=== PATIENT | female | born 1980 | race African-American/Black ===

== ENCOUNTER → 2018-03-15 | Outpatient (CLI) | payer BC ==
[2016-01-16 20:04] VITALS: BP 134/74
[~2018-03-15] MED LIST: BUTA1CAP29 PO
--- NOTE | 2018-03-15 17:08 | RAD ---
Transabdominal and transvaginal sonography of the pelvis Clinical indications: Excessive menstruation. Transabdominal sonography: The uterus is anteverted in position. The longitudinal and AP and transverse dimensions of the uterus are 14.1 cm and 10.0 cm and 12.3 cm respectively. There is a large heterogeneous solid mass of the upper right aspect of the uterus measuring 8.5 cm in greatest dimension. The endometrial canal is visualized and measures 11 mm in thickness which is normal. There is a small hypoechoic nodule within the anterior midportion of the upper aspect of the uterus measuring 1.7 cm in size. The left ovary measures 2.9 cm and 2.4 cm and 2.4 cm in size and is normal. Color Doppler flow is seen within the left ovary. The right ovary is not visualized. Transvaginal sonography will be performed. No adnexal mass or free fluid is seen. Transvaginal sonography: Uterus is poorly visualized due to the large mass. The endometrial canal measures 17 mm in thickness by transvaginal exam. Nabothian cysts of the cervix are seen. Neither ovary is visualized by transvaginal exam. No adnexal mass or free fluid is evident. IMPRESSION: 8.5 cm mass of the upper aspect of the right side of the uterus most likely representing a uterine fibroid. Small uterine fibroid is seen more anteriorly measuring 1.7 cm.. The endometrial canal measures 17 mm in thickness by transvaginal exam which is mildly thickened. Normal measurement of the endometrial canal in a premenopausal patient is 16 mm. Electronically signed by: Louis Echevarria MD (03/15/2018 5:05 PM) [id number]
== END | disposition home or self-care (01) ==
LOC: US 15:42
PROVIDERS: ATTEND Obstetrics & Gynecology
DX: N92.0 Excessive and frequent menstruation with regular cycle (principal); N88.8 Other specified noninflammatory disorders of cervix uteri; D25.2 Subserosal leiomyoma of uterus
CPT/HCPCS: 76830; 76856

== ENCOUNTER 2018-06-30 05:56 | Observation (INO) | payer BC ==
[~2018-06-30] VITALS: Ht 154.9 cm; Wt 77.1 kg
[2018-06-30] VITALS (8 sets, daily range): BP systolic 106–135; BP diastolic 68–81
[~2018-06-30 05:56] MED LIST changes: +ASPI1TAB31 PO; +L.AC1CAP6 PO; +MELA3TAB2 PO
[2018-06-30] MEDS ORDERED: CLINDAMYCIN 900MG PREMIX 50 ML IV PRN (06:00)
[2018-06-30] MEDS ORDERED: SURGICEL HEMOSTAT 4X8 EACH. ONE (06:19)
[2018-06-30] MEDS ORDERED: LIDOCAINE 1%/EPI 1:100,000 20 ML VIAL. ONE (06:19)
[2018-06-30] MEDS ORDERED: BUPIVACAINE-EPI 0.25%-1:200000 MPF 30 ML VIAL. ONE (06:19)
[2018-06-30] MEDS ORDERED: METHYLENE BLUE 1% 10 ML VIAL. ONE (06:19)
[2018-06-30] MEDS ORDERED: ESTROGENS, CONJ VAGINAL CREAM 30GM TUBE. ONE (06:19)
[2018-06-30 06:37] LABS: U PREG PATIENT NEGATIVE (NEG)
[2018-06-30] MEDS ORDERED: ONDANSETRON PF 4 MG/2 ML VIAL. IV PRN ×2 (07:00→10:45)
[2018-06-30] MEDS ORDERED: MORPHINE SULFATE 2 MG/ML VIAL. IV PRN (07:00)
[2018-06-30] MEDS ORDERED: fentaNYL PF VIAL 100 MCG/2 ML VIAL IV PRN (07:00)
[2018-06-30] MEDS ORDERED: IV RINGERS,LACTATED 1000ML 1,000 ML IV SCH (07:00)
[2018-06-30] MEDS ORDERED: PROCHLORPERAZINE 10 MG/2 ML VIAL. IV PRN ×2 (07:00→10:45)
[2018-06-30 07:10] LABS: BASO # 0.1 x10^3/uL (0.0-0.2); BASO % 1 % (0-3); EOS # 0.2 x10^3/uL (0.0-0.7); EOS % 3 % (0-3); HEMATOCRIT 30.3 % (36.0-47.0); HEMOGLOBIN 8.9 g/dL (12.0-15.5); LYMPH # 1.5 x10^3/uL (1.0-4.8); LYMPH % 25 % (24-48); MEAN CORPUSCULAR HEMOGLOBIN 18 pg (25-35); MEAN CORPUSCULAR HGB CONC 29 g/dL (31-37); MEAN CORPUSCULAR VOLUME 61 fL (79-100); MONO # 0.4 x10^3/uL (0.0-1.1); MONO % 7 % (0-9); NEUT % 65 % (31-73); PLATELET COUNT 294 x10^3/uL (140-400); RED BLOOD COUNT 4.97 x10^6/uL (3.50-5.40); RED CELL DISTRIBUTION WIDTH 18.7 % (11.5-14.5); WHITE BLOOD COUNT 6.1 x10^3/uL (4.0-11.0)
[2018-06-30] MEDS ORDERED: MIDAZOLAM HCL/PF 2 MG/2 ML VIAL. ONE (07:43)
[2018-06-30] MEDS ORDERED: ROCURONIUM 50 MG/5 ML VIAL. ONE ×2 (07:43→08:51)
[2018-06-30] MEDS ORDERED: fentaNYL PF VIAL 250 MCG/5 ML VIAL ONE (07:43)
[2018-06-30] MEDS ORDERED: AZTREONAM IV Push 1 GM VIAL. IVP ONE (07:45)
[2018-06-30 08:15] LABS: ANISOCYTOSIS MOD; HYPOCHROMIA SLIGHT; MICROCYTOSIS PRESENT; PLT ESTIMATE ADEQUATE (ADEQUATE)
[2018-06-30 08:16] LABS: BIZZARE CELLS OCC; OVALOCYTES OCC; POIKILOCYTOSIS SLIGHT
[2018-06-30] MEDS ORDERED: LIDOCAINE 2% PF 5 ML VIAL. ONE (08:52)
[2018-06-30] MEDS ORDERED: SEVOFLURANE 61 TO 120 MINUTES. IH ONE (08:52)
[2018-06-30] MEDS ORDERED: PROPOFOL 20 ML IV ONE (08:52)
[2018-06-30] MEDS ORDERED: DEXAMETHASONE SOD PHOS 20 MG/5 ML VIAL. ONE (08:52)
[2018-06-30] MEDS ORDERED: ONDANSETRON PF 4 MG/2 ML VIAL. ONE (08:52)
--- NOTE | 2018-06-30 10:37 | PDOC ---
BRIEF OPERATIVE NOTE Date: Jun 30, 2018 Pre-Op Diagnosis 1. Fibroids 2. Menorrhagia 3. Dysmenorrhea Post-Op Diagnosis SAme + ROV Cyst Procedure Performed LAVH and ROV Cystectomy Surgeon Dr. Patricio Varela Anesthesia Type: General Blood Loss 100 ml Specimens Obtained uterus, cervix, marlena. fallopian tubes and ROV cyst Findings enlarged, fibroid uterus with adhesions to pelvic sidewall, ROV cyst 5 cm size; nml fallopian tubes marlena., nml RACHELL Complications none Operative Note see dictation BRIDGETT GREER Jr, MD Jun 30, 2018 10:37
[2018-06-30] MEDS ORDERED: ZOLPIDEM 5 MG TABLET. PO PRN (10:45)
[2018-06-30] MEDS ORDERED: DEXTROSE 50% 25 GM / 50ML DISP.SYRIN. IV PRN (10:45)
[2018-06-30] MEDS ORDERED: diphenhydrAMINE 50 MG/ML VIAL IV PRN (10:45)
[2018-06-30] MEDS ORDERED: 0.9 % SODIUM CHLORIDE 10 ML DISP.SYRIN. IV PRN (10:45)
[2018-06-30] MEDS ORDERED: SIMETHICONE 80 MG TAB.CHEW PO PRN (10:45)
[2018-06-30] MEDS ORDERED: CALCIUM CARBONATE 500 MG TAB.CHEW PO PRN (10:45)
[2018-06-30] MEDS ORDERED: diphenhydrAMINE HCL 25 MG CAPSULE PO PRN (10:45)
[2018-06-30] MEDS: fentaNYL PF VIAL 100 MCG/2 ML VIAL IV PRN ×2 (10:53→11:07)
[2018-06-30] MEDS: HYDROmorphone 2 MG/ML VIAL IV PRN ×2 (11:24→11:37)
--- NOTE | 2018-06-30 12:18 | OP ---
DATE OF SURGERY: PREOPERATIVE DIAGNOSES: 1. Fibroids. 2. Menorrhagia. 3. Dysmenorrhea. POSTOPERATIVE DIAGNOSES: 1. Fibroids. 2. Menorrhagia. 3. Dysmenorrhea. 4. Right ovarian cyst. PROCEDURE: LAVH and right ovarian cystectomy. SURGEON: Bridgett Curry MD MANAGER LAND: Nichole. ANESTHESIA: GETA. ESTIMATED BLOOD LOSS: 100 mL. COMPLICATIONS: None. FINDINGS: Enlarged fibroid uterus with adhesions to the pelvic sidewall. Right ovarian cyst 5 cm size, normal fallopian tubes bilaterally and normal left ovary. SUMMARY: The patient with long history of dysmenorrhea and menorrhagia, also had multiple enlarged fibroids and pelvic sonogram. She was counseled on the risks, benefits and expectations of LAVH and voiced clear understanding to proceed. DESCRIPTION OF PROCEDURE: The patient was taken to surgery suite and placed in dorsal lithotomy position. She was prepped with ChloraPrep for abdominal prep and Betadine for vaginal prep. After adequate anesthesia, bivalve speculum was placed vaginally. The anterior lip of the cervix was grasped with single tooth tenaculum. The [employer] uterine manipulator was then placed. The bivalve speculum was removed. Attention was now placed on the abdomen. Small transverse skin incision was made just below the umbilicus with the scalpel. The Veress needle was then placed through the infraumbilical incision site. The abdomen was allowed to insufflate up to 1-1/2 liters CO2 gas. The Veress needle was then removed, 5 mm trocar was placed. The scope was positioned. The uterus was visualized and enlarged with multiple fibroids. There was a right ovarian cyst of about 5 cm size. The fallopian tubes appeared normal bilaterally. There were adhesions to the left pelvic sidewall. The left ovary appeared normal. Two additional incisions were made in the left lower quadrant with a scalpel in which 5 mm trocars were placed. With the aid of graspers and the EnSeal device, the right round ligament was coagulated and dissected. The right utero-ovarian pedicle was coagulated and dissected. The right ovarian cyst was then isolated and the cyst was suctioned with the suction senior peoplesoft developer, which was clear fluid. The cyst wall was removed with the aid of EnSeal device. The remaining cyst wall and right ovary were hemostatic. The left round ligament was then coagulated and dissected. The left utero-ovarian pedicle was coagulated and dissected. The broad ligament was coagulated and dissected bilaterally. Due to the large fibroids, we were unable to create a bladder flap. The pedicles at this time were all hemostatic and verified with suction irrigation. We then proceeded vaginally. Weighted speculum and curved Coward were placed. Single tooth tenaculum and Valtchev uterine manipulator were then removed. Solitario clamps were placed on the anterior and posterior lip of the cervix. The cervix was then injected with 1% lidocaine with epinephrine in a circumferential manner. Bovie cautery was utilized to circumscribe the cervix. The vaginal wall mucosa was then dissected away from the lower uterine segment using blunt dissection with a moist Ray-Milan. The parametrial tissue was clamped bilaterally, cut and suture ligated with 2-0 Vicryl suture. The cardinal ligament was then clamped bilaterally, cut, and suture ligated. Then, anterior and posterior cul-de-sac and sharp dissection with curved Viera scissors. A long weighted speculum was then placed. The uterosacral ligaments were clamped bilaterally, cut, and suture ligated. Three additional pedicles were taken bilaterally, which were clamped, cut, and suture ligated. We then entered the anterior cul-de-sac with blunt dissection. The uterus was then bivalved and part of the cervix and lower uterine segment were removed. The coring method to debulk the uterus of the multiple fibroids was then performed, which took considerable amount of time due to the adhesions and the large fibroids. There were multiple fibroids that were 8-10 cm size that were debulked and removed and then finally the uterus was removed. A modified Orellana's culdoplasty incorporating the uterosacral ligaments bilaterally was performed. The remainder of the vaginal cuff was reapproximated using 2-0 Vicryl suture in a [id number] manner. Moist vaginal packing was placed. Attention was once again placed on the abdomen. Suction irrigation was utilized to visualize the posterior cuff, which was hemostatic. Andree was placed along the posterior cuff. The trocars were then removed under direct visualization. The abdomen was allowed to deflate as much as possible along with mechanical manipulation. The three skin incisions were reapproximated using 4-0 Vicryl suture in subcuticular manner. A 0.25% Marcaine with epinephrine was injected at each incision site. The patient tolerated the procedure well and was taken to recovery room in stable condition. Sponge and needle count correct x 3. BRIDGETT CURRY MD DR: ROHAN/fatmata JOB#: [id number] / [id number]
[2018-06-30] MEDS: KETOROLAC 30 MG/ML VIAL. IV PRN ×2 (12:36→21:30)
[2018-06-30] MEDS: GABAPENTIN 300 MG CAPSULE. PO SCH ×2 (14:00→21:31)
[2018-06-30] MEDS ORDERED: fentaNYL PF VIAL 100 MCG/2 ML VIAL IV ONE (17:30)
[2018-06-30] MEDS: oxyCODONE/APAP 5/325 1 TAB TABLET PO PRN (21:31)
[2018-07-01 03:04] VITALS: BP 119/76
[2018-07-01] MEDS: oxyCODONE/APAP 5/325 1 TAB TABLET PO PRN ×2 (05:31→09:24)
[2018-07-01] MEDS: KETOROLAC 30 MG/ML VIAL. IV PRN (05:31)
[2018-07-01 06:08] LABS: BASO % 0 % (0-3); EOS % 0 % (0-3); HEMATOCRIT 24.6 % (36.0-47.0); HEMOGLOBIN 7.2 g/dL (12.0-15.5); LYMPH # 1.2 x10^3/uL (1.0-4.8); LYMPH % 12 % (24-48); MEAN CORPUSCULAR HEMOGLOBIN 18 pg (25-35); MEAN CORPUSCULAR HGB CONC 29 g/dL (31-37); MEAN CORPUSCULAR VOLUME 61 fL (79-100); MONO # 0.7 x10^3/uL (0.0-1.1); MONO % 7 % (0-9); NEUT # 8.4 x10^3uL (1.8-7.7); NEUT % 81 % (31-73); PLATELET COUNT 268 x10^3/uL (140-400); RED BLOOD COUNT 4.05 x10^6/uL (3.50-5.40); RED CELL DISTRIBUTION WIDTH 18.4 % (11.5-14.5); WHITE BLOOD COUNT 10.4 x10^3/uL (4.0-11.0)
[2018-07-01 06:37] VITALS: BP 118/81
--- NOTE | 2018-07-01 08:40 | PDOC ---
SURGICAL PROGRESS NOTE Subjective Pt. feeling well. Pain controlled. Vital Signs Vital Signs Date Time Temp Pulse Resp B/P (MAP) Pulse Ox O2 Delivery O2 Flow Rate FiO2 07/01/18 06:37 98.6 84 18 118/81 (93) 98 Room Air 98.6 06/30/18 12:03 2.0 I&O Intake and Output 07/01/18 06:59 Intake Total 4943 ml Output Total 3900 ml Balance 1043 ml Intake Oral 640 ml IV Total 2800 ml Other 1503 ml Output Urine Total 3800 ml Estimated Blood Loss 100 ml PATIENT HAS A MARTINEZ: No General: Alert, Oriented X3, Cooperative HEENT: Atraumatic Lungs: Clear to auscultation Heart: Regular rate Abdomen: Normal bowel sounds, Soft, No masses Psych/Mental Status: Mental status NL Labs Laboratory Tests Test 06/30/18 06:30 06/30/18 06:35 07/01/18 05:20 Urine Test Negative (NEG) White Blood Count 6.1 x10^3/uL (4.0-11.0) 10.4 x10^3/uL (4.0-11.0) Red Blood Count 4.97 x10^6/uL (3.50-5.40) 4.05 x10^6/uL (3.50-5.40) Hemoglobin 8.9 g/dL (12.0-15.5) 7.2 g/dL (12.0-15.5) Hematocrit 30.3 % (36.0-47.0) 24.6 % (36.0-47.0) Mean Corpuscular Volume 61 fL (79-100) 61 fL (79-100) Mean Corpuscular Hemoglobin 18 pg (25-35) 18 pg (25-35) Mean Corpuscular Hemoglobin Concent 29 g/dL (31-37) 29 g/dL (31-37) Red Cell Distribution Width 18.7 % (11.5-14.5) 18.4 % (11.5-14.5) Platelet Count 294 x10^3/uL (140-400) 268 x10^3/uL (140-400) Neutrophils (%) (Auto) 65 % (31-73) 81 % (31-73) Lymphocytes (%) (Auto) 25 % (24-48) 12 % (24-48) Monocytes (%) (Auto) 7 % (0-9) 7 % (0-9) Eosinophils (%) (Auto) 3 % (0-3) 0 % (0-3) Basophils (%) (Auto) 1 % (0-3) 0 % (0-3) Neutrophils # (Auto) 4.0 x10^3uL (1.8-7.7) 8.4 x10^3uL (1.8-7.7) Lymphocytes # (Auto) 1.5 x10^3/uL (1.0-4.8) 1.2 x10^3/uL (1.0-4.8) Monocytes # (Auto) 0.4 x10^3/uL (0.0-1.1) 0.7 x10^3/uL (0.0-1.1) Eosinophils # (Auto) 0.2 x10^3/uL (0.0-0.7) 0.0 x10^3/uL (0.0-0.7) Basophils # (Auto) 0.1 x10^3/uL (0.0-0.2) 0.0 x10^3/uL (0.0-0.2) Platelet Estimate Adequate (ADEQUATE) Large Platelets Occ Hypochromasia Slight Poikilocytosis Slight Anisocytosis Mod Microcytosis Present Ovalocytes Occ RBC Morphology Bizarre Forms Occ Laboratory Tests Test 07/01/18 05:20 White Blood Count 10.4 x10^3/uL (4.0-11.0) Red Blood Count 4.05 x10^6/uL (3.50-5.40) Hemoglobin 7.2 g/dL (12.0-15.5) Hematocrit 24.6 % (36.0-47.0) Mean Corpuscular Volume 61 fL (79-100) Mean Corpuscular Hemoglobin 18 pg (25-35) Mean Corpuscular Hemoglobin Concent 29 g/dL (31-37) Red Cell Distribution Width 18.4 % (11.5-14.5) Platelet Count 268 x10^3/uL (140-400) Neutrophils (%) (Auto) 81 % (31-73) Lymphocytes (%) (Auto) 12 % (24-48) Monocytes (%) (Auto) 7 % (0-9) Eosinophils (%) (Auto) 0 % (0-3) Basophils (%) (Auto) 0 % (0-3) Neutrophils # (Auto) 8.4 x10^3uL (1.8-7.7) Lymphocytes # (Auto) 1.2 x10^3/uL (1.0-4.8) Monocytes # (Auto) 0.7 x10^3/uL (0.0-1.1) Eosinophils # (Auto) 0.0 x10^3/uL (0.0-0.7) Basophils # (Auto) 0.0 x10^3/uL (0.0-0.2) Assessment/Plan A: POD#1 s/p LAVH and ROV Cystectomy P: D/c home. BRIDGETT GREER Jr, MD Jul 01, 2018 08:40
--- NOTE | 2018-07-01 08:45 | DISCH ---
DISCHARGE INSTRUCTIONS Condition on Discharge Condition on Discharge: Stable Activity After Discharge Activity Instructions for Disc: Activity as tolerated Lifting Instructions after Dis: No heavy lifting Driving Instructions after Dis: No driving for 2 weeks Diet after Discharge Diet after Discharge: Regular Contacting the DRAman after DC Call your doctor for: Concerns you may have Follow-Up Follow up with: Dr. Curry in 2 weeks. BRIDGETT CURRY Jr, MD Jul 01, 2018 08:45
[2018-07-01] MEDS ORDERED: OXYC1TAB15 PO (08:50)
[2018-07-01] MEDS ORDERED: IBUP-1060 PO (08:50)
[2018-07-01] MEDS ORDERED: DOCU-109 PO (08:50)
[2018-07-01 09:00] VITALS: BP 121/66
[2018-07-01] MEDS: GABAPENTIN 300 MG CAPSULE. PO SCH (09:23)
[2018-07-01 11:10] VITALS: BP 111/73
--- NOTE | 2018-07-01 11:15 | NUR ---
Discharge Note: Pt. verbalizes understanding to discharge care instructions, copy and prescriptions provided. Pt. escorted via WC by RN to mother awaiting in vehicle. Pt. discharged home with belongings. Elizabeth Roman RN
--- NOTE | 2018-07-01 15:06 | PATHOLOGY ---
[facility] Accession Number: [id number] . 01 Material submitted: . PART A: RIGHT OVARIAN CYST WALL PART B: CERVIX, UTERUS, AND BILATERAL TUBES . 01 Clinical history: . Fibroids, menorrhagia, dysmenorrhea. . 02 Diagnosis: A. Segments of ovarian tissue, right ovarian cyst wall: - Follicle cyst and cystic follicles. . B. Segments of uterine corpus and uterine cervix and detached bilateral fallopian tubes, laparoscopic-assisted vaginal hysterectomy with bilateral salpingectomy: - Leiomyomas, uterine corpus, multiple (uterine weight 576 grams). - Nabothian cysts, cervix, few. - Proliferative endometrium. - Adenomyosis, uterine corpus. - Congestion of bilateral fallopian tubes. . (JPM:srinivasan; 07/01/2018) MBR/07/01/2018 . 02 Comment: There is no atypia or evidence of malignancy. (JPM:srinivasan; 07/01/2018) . 02 Electronically signed: . Jesus Zuniga MD, Pathologist NPI- [id number] . 01 Gross description: . A. Received in formalin labeled "Fantasma Nava, right ovarian cyst wall" are two portions of olvera-pink membranous cyst wall measuring 4.0 x 3.5 x 0.2 cm and 2.0 x 1.3 x 0.2 cm. The surfaces are smooth and no solid areas or papillary excrescences are identified. [employer] sections are submitted in cassettes A1-A2. . B. Received in formalin labeled "Fantasma Nava, cervix, uterus, bilateral tubes" is a hysterectomy specimen consisting of a morcellated uterus with detached fallopian tubes. The uterus weighs 576 g and measures 16.8 x 16.0 x 7.5 cm in aggregate. The serosa is pink olvera and smooth with focal ragged areas. The cervical os is slitlike and measures 1.2 cm, and the ectocervix is pink-olvera and glistening. The endocervical canal measures 5.0 x 1.7 cm, and the endometrial cavity dimensions cannot be determined due to the fragmented nature of the specimen. Scant endometrial tissue is identified, measuring 0.1 cm in thickness. The myometrial thickness cannot be determined due to the fragmented nature of the specimen. Approximately 50% of the portions display olvera-white firm fibrotic leiomyomata, with these fragments ranging from 4.0-10.2 cm in greatest dimension. No hemorrhage or necrosis is identified. The first fimbriated fallopian tube measures 3.2 cm in length and 0.8 cm in diameter. The second fimbriated fallopian tube measures 6.2 cm in length and 0.7 cm in diameter. The serosal surfaces are pink olvera and smooth and the fallopian tubes are serially sectioned to reveal pinpoint lumens. Construction St[employer]emason sections are submitted as follows: B1-B2 cervix B3-B4 endometrium B5-B6 cash application representative leiomyomata B7 entire first fallopian tube B8 cash application representative second fallopian tube ([facility]; 06/30/2018) SYC/SYC . 02 Pathologist provided ICD-10: D25.9, N88.8, N80.0, N83.01 . 02 CPT . 736259 Specimen Comment: A courtesy copy of this report has been sent to Specimen Comment: [phone]. Specimen Comment: Report sent to [facility]formed at: [facility] [address], [place] [id number] MD Johnny Montes MD Phone: [phone] Performed at: [facility] [address] [place], [place] [id number] MD Jesus Zuniga MD Phone: [phone]
== END 2018-07-01 11:15 | disposition home or self-care (01) ==
LOC: SURG 05:56 → 3 NORTH 10:37
PROVIDERS: ADMIT Obstetrics & Gynecology; ATTEND Obstetrics & Gynecology
DX: D25.9 Leiomyoma of uterus, unspecified (principal); N92.0 Excessive and frequent menstruation with regular cycle; N94.6 Dysmenorrhea, unspecified; N83.201 Unspecified ovarian cyst, right side
CPT/HCPCS: 36415; 58554; 81025; 85025; 86850; 86900; 86901; 88307; 96374; 96375; 96376; A7015; G0378; G0379; J1100; J1170; J1885; J2001; J2250; J2405; J2704; J3010; J3490; J7030; J7120; Q9968

== ENCOUNTER 2018-08-06 16:24 | Emergency (ER) | payer BC ==
[~2018-08-06] VITALS: Ht 154.9 cm; Wt 77.1 kg
[~2018-08-06 16:24] MED LIST changes: +DOCU-109 PO; +IBUP-1060 PO; +OXYC1TAB15 PO
[2018-08-06 16:27] VITALS: BP 137/80
[2018-08-06] MEDS ORDERED: MUPI22OI2 TP (16:46)
--- NOTE | 2018-08-06 16:46 | PHYS DOC ---
Past Medical History Past Medical History: Migraines Past Surgical History: Tubal ligation Alcohol Use: Occasionally Drug Use: None Adult General Chief Complaint Chief Complaint: POST-OP PROBLEM HPI HPI Patient is a 38 year old female who presents today complaining of trace redness on the incision site from her hysterectomy she had roughly a week ago. Patient denies any drainage from the area. Denies any fever, denies any abdominal pain nausea or vomiting. She had laparoscopic hysterectomy. Review of Systems Review of Systems Constitutional: Denies fever or chills [] Eyes: Denies change in visual acuity, redness, or eye pain [] HENT: Denies nasal congestion or sore throat [] Respiratory: Denies cough or shortness of breath [] Cardiovascular: No additional information not addressed in HPI [] GI: Reports trace redness an incision site on the abdomen. Denies abdominal pain, nausea, vomiting, bloody stools or diarrhea [] : Denies dysuria or hematuria [] Musculoskeletal: Denies back pain or joint pain [] Integument: See abdomen Neurologic: Denies headache, focal weakness or sensory changes [] All other systems were reviewed and found to be within normal limits, except as documented in this note. Allergies Allergies Allergies Coded Allergies Type Severity Reaction Last Updated Verified Penicillins Allergy Intermediate Unknown 06/30/18 Yes Physical Exam Physical Exam Constitutional: Well developed, well nourished, no acute distress, non-toxic appearance. [] HENT: Normocephalic, atraumatic, bilateral external ears normal, oropharynx moist, no oral exudates, nose normal. [] Eyes: PERRLA, EOMI, conjunctiva normal, no discharge. [] Neck: Normal range of motion, no tenderness, supple, no stridor. [] Cardiovascular:Heart rate regular rhythm, no murmur [] Lungs & Thorax: Bilateral breath sounds clear to auscultation [] Abdomen: Bowel sounds normal, soft, no tenderness, no masses, no pulsatile masses. Left mid abdomen with an incision site approximately 1 cm long with trace erythema and trace yellowness, no drainage. The incision site is not dehisced. There is no warmth over the area. The rest of the laparoscopic i ncision site on the abdomen appear normal. This appears to be a superficial infection. Skin: See abdomen Back: No tenderness, no CVA tenderness. [] Extremities: No tenderness, no cyanosis, no clubbing, ROM intact, no edema. [] Neurologic: Alert and oriented X 3, normal motor function, normal sensory function, no focal deficits noted. [] Psychologic: Affect normal, judgement normal, mood normal. [] EKG EKG [] Radiology/Procedures Radiology/Procedures [] Course & Med Decision Making Course & Med Decision Making Pertinent Labs and Imaging studies reviewed. (See chart for details) This is a 38-year-old female patient presenting to the ED today with a superficial infection on the laceration site from a laparoscopic hysterectomy done a week ago. She has trace erythema to this incision site on the left mid abdomen. Her tetanus is up-to-date. Discharged with Bactroban ointment. Instructed to keep the areas clean and dry and follow-up with her NAIL PULLER, she states she has an appointment August 10, 2018. Dragon Disclaimer Dragon Disclaimer This electronic medical record was generated, in whole or in part, using a voice recognition dictation system. Departure Departure Impression: Primary Impression: Superficial incisional surgical site infection Disposition: 01 HOME, SELF-CARE Condition: STABLE Referrals: NO PCP (PCP) BRIDGETT GREER Jr, MD Follow up August 10, 2018 as scheduled Patient Instructions: Skin Infections Additional Instructions: You were evaluated in the emergency room for surgical incision infection. Keep the area clean and dry. Apply the prescribed medication twice a day to the area. Follow-up with the NAIL PULLER on 10 Aug 2018 as scheduled. Come back to the ED at any point symptoms worsen. Scripts Mupirocin (MUPIROCIN OINTMENT) 22 Gm Oint...g. 1 RAFAEL TP TID for WOUND CARE, #1 TUBE Prov: HANSEL PICKENS APRN 08/06/18 HANSEL PICKENS APRN Aug 06, 2018 16:46
== END 2018-08-06 16:49 | disposition home or self-care (01) ==
LOC: ER 16:24
DX: T81.41XA Infection following a procedure, superficial incisional surgical site, initial encounter (principal); G43.909 Migraine, unspecified, not intractable, without status migrainosus; Z98.51 Tubal ligation status; Z88.0 Allergy status to penicillin
CPT/HCPCS: 99283

== ENCOUNTER → 2019-05-16 | Outpatient (CLI) | payer BC, OTHER ==
[~2019-05-16] MED LIST changes: -MELA3TAB2 PO; +MELA3TAB56 PO; +MUPI22OI2 TP
--- NOTE | 2019-05-16 17:39 | KCIC ---
PELVIS W/TV History: Right pelvic pain. Comparison: March 15, 2018. Technique: Grayscale and color Doppler imaging of the pelvis was performed using transabdominal and transvaginal technique. Findings: Prior hysterectomy. Right ovary measures 3.0 x 2.7 x 3.9 cm. Complicated follicle within the right ovary measures 1.6 x 1.1 x 1.8 cm. Small amount of fluid within the right adnexa with debris. Left ovary not identified due to positioning and overlying bowel gas. IMPRESSION: 1. Complicated follicle within the right ovary, may represent hemorrhagic follicle. 2. Small amount of nonspecific fluid within the right adnexa with debris. Recommend follow-up. 3. Prior hysterectomy. 4. Left ovary not identified. Electronically signed by: Sim Soto DO (05/16/2019 5:36 PM) [facility]
== END | disposition home or self-care (01) ==
LOC: KCIC US 14:37
PROVIDERS: ATTEND Obstetrics & Gynecology
DX: N83.8 Other noninflammatory disorders of ovary, fallopian tube and broad ligament (principal); Z20.2 Contact with and (suspected) exposure to infections with a predominantly sexual mode of transmission; Z90.710 Acquired absence of both cervix and uterus
CPT/HCPCS: 76830; 76856

== ENCOUNTER 2019-10-18 16:57 | Emergency (ER) | payer OTHER ==
[~2019-10-18] VITALS: Ht 157.5 cm; Wt 77.2 kg
[~2019-10-18 16:57] MED LIST changes: +MELA3TAB4 PO; -MELA3TAB56 PO
--- NOTE | 2019-10-18 20:10 | PHYS DOC ---
Past Medical History Past Medical History: No Pertinent History, Migraines Past Surgical History: Hysterectomy, Tubal ligation Smoking Status: Never Smoker Alcohol Use: Occasionally Drug Use: None General Adult EDM: Chief Complaint: LACERATION/AVULSION HPI: HPI: Patient is a 39 year old female who presents with injury to left foot. Patient reports that she dropped a metal bar onto the top of her foot at work this evening and has a laceration on the top of her left foot. Patient is unsure when her last tetanus shot was. She is rating her pain 6 out of 10, there is no radiation of pain, no aggravating factors, patient took no treatment for pain prior to arrival. Patient is able to bear weight and ambulate. Review of Systems: Review of Systems: Constitutional: Denies fever or chills. [] : Denies dysuria. [] Musculoskeletal: See HPI Integument: See HPI Psychiatric: Denies depression or anxiety. [] Heart Score: Risk Factors: Risk Factors: DM, Current or recent (<one month) smoker, HTN, HLP, family history of CAD, obesity. Risk Scores: Score 0 - 3: 2.5% MACE over next 6 weeks - Discharge Home Score 4 - 6: 20.3% MACE over next 6 weeks - Admit for Clinical Observation Score 7 - 10: 72.7% MACE over next 6 weeks - Early Invasive Strategies Allergies: Allergies: Allergies Coded Allergies Type Severity Reaction Last Updated Verified Penicillins Allergy Intermediate Unknown 06/30/18 Yes Physical Exam: PE: Constitutional: Well developed, well nourished, no acute distress, non-toxic appearance. [] HENT: Normocephalic, atraumatic, bilateral external ears normal, nose normal. [] Eyes: PERRLA, EOMI, conjunctiva normal, no discharge. [] Neck: Normal range of motion, no stridor. [] Cardiovascular:Heart rate regular rhythm Lungs & Thorax: Respirations even and unlabored, no retractions, no respiratory distress Skin: Warm, dry, no erythema, no rash; 1.5 cm horizontal laceration noted just proximal to the left great toe, no active bleeding no visible foreign body. [] Extremities: Left foot: Tenderness to palpation proximal to the left great toe, full extension and flexion of the affected toe, no obvious deformity, no crepitus no cyanosis, no edema. [] Neurologic: Alert and oriented X 3, no focal deficits noted. [] Psychologic: Affect normal, judgement normal, mood normal. [] EKG: EKG: [] Radiology/Procedures: Radiology/Procedures: PROCEDURE: FOOT LEFT 3V Study: CR FOOT LEFT 3V Indication: Trauma to the foot. Laceration. Comparison: None. Findings: No acute fracture is identified or traumatic malalignment. Joint spaces are maintained. Normal osseous mineralization. No retained radiopaque foreign body. Impression: No acute osseous abnormality. Laceration Repair by me: Anesthesia: 1% lidocaine locally Location: left foot Tendon/Joint/Nerves: No injury Foreign body: None detected after cleansing and exploration Technique: 3 Simple Interrupted Sutures with 4-0 Prolene Complexity: No subcutaneous sutures/mucosal repair/edge excision Post Closure Length: 1.5 cm Patient's bleeding was easily controlled in the department and there is no indication of anemia. No evidence of compartment syndrome, neurologic injury, vascular injury, open joint, tendon laceration, or foreign body. Patient is appropriate for outpatient follow up. Course & Med Decision Making: Course & Med Decision Making Pertinent Labs and Imaging studies reviewed. (See chart for details) [] Dragon Disclaimer: Dragon Disclaimer: This electronic medical record was generated, in whole or in part, using a voice recognition dictation system. Departure Departure Impression: Primary Impression: Laceration of left foot excluding toes Qualified Codes: S91.312A - Laceration without foreign body, left foot, in itial encounter Additional Impression: Need for Tdap vaccination Disposition: 01 HOME, SELF-CARE Condition: STABLE Referrals: NO PCP (PCP) Patient Instructions: Laceration Care, Adult, [id number] Additional Instructions: Fill the prescription and use as directed. Keep the area clean and dry. You may take Tylenol or ibuprofen as needed for pain. Keep the dressing that was placed today on for 24 hours then change the dressing twice a day and apply antibiotic ointment to the area. Follow-up with your primary care doctor, or return to the emergency room in 10-14 days to have the sutures removed, sooner if you develop signs of infection including: redness, warmth, drainage, or a fever. Scripts Cephalexin (KEFLEX) 500 Mg Capsule 500 MG PO TID for 7 Days, #21 CAP 0 Refills Prov: CHANTAL PLATT APRN 10/18/19 Justicifation of Admission Dx: Justifications for Admission: Justification of Admission Dx: N/A CHANTAL PLATT APRN Oct 18, 2019 20:10
[2019-10-18] MEDS ORDERED: DIPH,PERTUSS(ACELL),TET VAC/PF 0.5 ML SYRINGE. VAX IM ONE ×2 (20:15)
[2019-10-18] MEDS ORDERED: LIDOCAINE 1% PF 2 ML VIAL. INJ ONE (20:15)
--- NOTE | 2019-10-18 20:34 | RAD ---
Study: CR FOOT LEFT 3V Indication: Trauma to the foot. Laceration. Comparison: None. Findings: No acute fracture is identified or traumatic malalignment. Joint spaces are maintained. Normal osseous mineralization. No retained radiopaque foreign body. Impression: No acute osseous abnormality. Electronically signed by: JUAREZ HUNT MD (10/18/2019 8:32 PM) [id number]
[2019-10-18] MEDS ORDERED: CEPH-264 PO (21:13)
[2019-10-18] MEDS ORDERED: NEOMY/BACITR/POLYMYXIN OINT PACKET. TP ONE (21:30)
[2019-10-18 21:37] VITALS: BP 172/100
== END 2019-10-18 21:42 | disposition home or self-care (01) ==
LOC: ER 16:57
DX: S91.312A Laceration without foreign body, left foot, initial encounter (principal); G43.909 Migraine, unspecified, not intractable, without status migrainosus; Z90.710 Acquired absence of both cervix and uterus; Z98.51 Tubal ligation status; Z88.0 Allergy status to penicillin; W26.8XXA Contact with other sharp object(s), not elsewhere classified, initial encounter; Y93.89 Activity, other specified; Y92.89 Other specified places as the place of occurrence of the external cause; Y99.8 Other external cause status
CPT/HCPCS: 12001; 73630; 90471; 90715; 99283; J3490

== ENCOUNTER 2020-12-13 13:41 | Emergency (ER) | payer OTHER ==
[~2020-12-13] VITALS: Ht 157.5 cm; Wt 75.0 kg
[~2020-12-13 13:41] MED LIST changes: +CEPH-264 PO
[2020-12-13 14:20] VITALS: BP 163/101
--- NOTE | 2020-12-13 14:44 | PHYS DOC ---
Past Medical History Past Medical History: No Pertinent History, Hypertension, Migraines Past Surgical History: Hysterectomy, Tubal ligation Smoking Status: Never Smoker Alcohol Use: Occasionally Drug Use: None General Adult EDM: Chief Complaint: FOOT INJURY PAIN HPI: HPI: Patient is a 40 year old female who presents with right-sided ankle pain since yesterday evening at 10 PM. Patient states she was stepping onto a stepstool earlier in the day, when she overstepped and twisted her ankle. She denies falling at the time of injury. Patient denies having injured this ankle previously. She states she was able to bear weight all day until about 10:00 PM last night. At that time, it was painful to bear weight. She describes her pain as throbbing at a 5 out of 10 currently. She reports that she elevated her ankle and used icy hot without symptom relief. She denies paresthesias or injury elsewhere. Patient denies fever, rash, headache, dizziness, vision changes, cough, shortness of breath, chest pain, palpitations and has no other complaints at this time. Patient reports a history of hypertension however she says that she is not prescribed medication because she is "stubborn." Denies other past medical history. Review of Systems: Review of Systems: Constitutional: Denies fever or chills. [] Eyes: Denies change in visual acuity. [] Respiratory: Denies cough or shortness of breath. [] Cardiovascular: Denies chest pain or edema. [] Musculoskeletal: negative except as mentioned in HPI. Neurologic: Denies headache, focal weakness or sensory changes. [] Heart Score: C/O Chest Pain: No Risk Factors: Risk Factors: DM, Current or recent (<one month) smoker, HTN, HLP, family history of CAD, obesity. Risk Scores: Score 0 - 3: 2.5% MACE over next 6 weeks - Discharge Home Score 4 - 6: 20.3% MACE over next 6 weeks - Admit for Clinical Observation Score 7 - 10: 72.7% MACE over next 6 weeks - Early Invasive Strategies Allergies: Allergies: Allergies Coded Allergies Type Severity Reaction Last Updated Verified Penicillins Allergy Intermediate Unknown 06/30/18 Yes Physical Exam: PE: Constitutional: Well developed, well nourished, no acute distress, non-toxic appearance. [] HENT: Normocephalic, atraumatic, bilateral external ears normal, nose normal. [] Eyes: conjunctiva normal, no discharge. [] Cardiovascular:Heart rate regular rhythm, no murmur [] Lungs & Thorax: Bilateral breath sounds clear to auscultation [] Skin: Warm, dry, no erythema, no rash. [] Extremities: Right ankle: Edema, tenderness to palpation over the lateral malleolus. Active range of motion limited secondary to pain. Passive range of motion only limited to internal rotation of the foot secondary to pain, otherwise intact. Strength 5 out of 5 in lower extremities proximal to injury. Peripheral pulses intact. Peripheral sensation intact. Neurologic: Alert and oriented X 3, normal motor function, normal sensory function, no focal deficits noted. Unable to assess gait secondary to pain. [] EKG: EKG: [] Radiology/Procedures: Radiology/Procedures: PROCEDURE: ANKLE RIGHT 3V EXAM: Right ankle, 3 views. HISTORY: Trauma. COMPARISON: None. FINDINGS: 3 views of the right ankle are obtained. There is no fracture, dislocation or subluxation. The ankle mortise is intact. There is no osteochondral lesion. IMPRESSION: No acute osseous finding. Electronically signed by: Modesta Villarreal MD (12/13/2020 3:09 PM) [id number] Course & Med Decision Making: Course & Med Decision Making Pertinent Labs and Imaging studies reviewed. (See chart for details) X-rays of the right ankle were ordered to rule out fracture, as all [place] criteria were not met (bony tenderness over lateral malleolus). No fractures were present. The injured ankle was wrapped with an David bandage and a surround splint was applied. Patient was provided crutches, she works in retail. Patient was advised to be nonweightbearing on the injured ankle, and resume bearing weight as tolerated. Patient should treat at home using the RICE guidelines. She was advised to only ice for 20 minutes at a time. Discussed the risks of untreated hypertension with the patient. Advised that she adhere to lifestyle changes if she chooses not to accept a prescription from her primary care provider to treat her hypertension. Kumar Disclaimer: Kumar Disclaimer: This electronic medical record was generated, in whole or in part, using a voice recognition dictation system. Departure Departure Impression: Primary Impression: Right ankle sprain Additional Impression: High blood pressure Disposition: 01 HOME / SELF CARE / HOMELESS Referrals: NO PCP (PCP) Patient Instructions: Ankle Sprain, [id number], Hypertension, [id number] Additional Instructions: Return to emergency department with any signs of compartment syndrome, including pallor, numbness or tingling, lack of blood flow, or cold to the touch. Scripts Ketorolac Tromethamine (KETOROLAC TROMETHAMINE) 10 Mg Tablet 1 TAB PO PRN Q6HRS, #20 TAB Prov: DYLON MELISSA 12/13/20 DYLON MELISSA Dec 13, 2020 14:44
[2020-12-13] MEDS ORDERED: IBUPROFEN 400 MG TABLET. PO ONE (14:45)
--- NOTE | 2020-12-13 15:12 | RAD ---
EXAM: Right ankle, 3 views. HISTORY: Trauma. COMPARISON: None. FINDINGS: 3 views of the right ankle are obtained. There is no fracture, dislocation or subluxation. The ankle mortise is intact. There is no osteochondral lesion. IMPRESSION: No acute osseous finding. Electronically signed by: Modesta Villarreal MD (12/13/2020 3:09 PM) [id number]
[2020-12-13] MEDS ORDERED: KETO10TA PO (15:18)
== END 2020-12-13 15:35 | disposition home or self-care (01) ==
LOC: ER 13:41
DX: S93.401A Sprain of unspecified ligament of right ankle, initial encounter (principal); I10 Essential (primary) hypertension; G43.909 Migraine, unspecified, not intractable, without status migrainosus; Z88.0 Allergy status to penicillin; X50.9XXA Other and unspecified overexertion or strenuous movements or postures, initial encounter; Y93.89 Activity, other specified; Y92.89 Other specified places as the place of occurrence of the external cause; Y99.8 Other external cause status
CPT/HCPCS: 29515; 73610; 99283